=== PATIENT | male | born 1970 | race American Indian/Alaskan Native ===

== ENCOUNTER 2021-01-05 22:05 | Emergency (ER) | payer SELFPAY ==
--- NOTE | 2021-01-06 00:03 | Cat Scan Report ---
CT head without contrast INDICATION : Headache following injury TECHNIQUE: Axial imaging performed from the skull apex through the skull base without the use of con trast. All CT examinations performed at this facility utilize dose modulation, iterative reconstruct ion or weight-based dosing, when appropriate, to reduce radiation dose to as low as reasonably achiev able. COMPARISON: None FINDINGS: No acute intracranial hemorrhage or parenchymal abnormality. Ventricles are normal in si ze and appear symmetric. Soft tissues including the orbits appear normal. No acute osseous abnorm ality. Sinuses and mastoid air cells are clear. IMPRESSION: No acute abnormality. Signer Name: Keyur Falcon MD Signed: 01/05/2021 11:59 PM Workstation Name: [id number]
[2021-01-06] MEDS ORDERED: cloNIDine 0.1 MG TAB PO ONE ×3 (01:39→05:04)
--- NOTE | 2021-01-06 01:41 | Emergency Department Report ---
ED General Adult HPI - General Chief complaint: Head Injury Stated complaint: HEADACHE Time Seen by Provider: 01/06/21 01:33 Source: patient Mode of arrival: Ambulatory Limitations: No Limitations - History of Present Illness Initial comments: Patient is 50 years old male with history of hypertension on lisinopril 40 mg. Patient presented to the ER complaining of headache and pressure in his head for the last 4 to 5 days. Patient stated that he hit his head few days ago. Patient denied any loss of consciousness. No focal weakness numbness or tin gling sensation. No bowel or bladder incontinence. Patient also denied any chest pain or shortness of breath. - Related Data Previous Rx's Medication Instructions Recorded Last Taken Type Aspirin [Aspirin BABY CHEW TAB] 81 mg PO QDAY #30 tab.chew 04/03/14 Unknown Rx Metoprolol [Lopressor TAB] 50 mg PO BID #60 tablet 04/03/14 Unknown Rx Rosuvastatin (Nf) [Crestor] 40 mg PO QHS #30 tablet 04/03/14 Unknown Rx amLODIPine [Norvasc] 5 mg PO DAILY #30 tab 01/06/21 Unknown Rx Allergies Allergy/AdvReac Type Severity Reaction Status Date / Time No Known Allergies Allergy Verified 04/02/14 01:10 ED Review of Systems ROS: Stated complaint: HEADACHE Other details as noted in HPI Comment: All other systems reviewed and negative Constitutional: denies: chills, fever Respiratory: denies: cough, shortness of breath, SOB with exertion Cardiovascular: denies: chest pain, palpitations Gastrointestinal: denies: abdominal pain, nausea, vomiting Musculoskeletal: denies: back pain Neurological: headache. denies: weakness, numbness, paresthesias, confusion, abnormal gait ED Past Medical Hx - Past Medical History Hx Heart Attack/AMI: Yes - Surgical History Past Surgical History?: No - Social History Smoking Status: Current Every Day Smoker - Medications Home Medications: Home Medications Medication Instructions Recorded Confirmed Last Taken Type Aspirin [Aspirin BABY CHEW TAB] 81 mg PO QDAY #30 tab.chew 04/03/14 Unknown Rx Metoprolol [Lopressor TAB] 50 mg PO BID #60 tablet 04/03/14 Unknown Rx Rosuvastatin (Nf) [Crestor] 40 mg PO QHS #30 tablet 04/03/14 Unknown Rx amLODIPine [Norvasc] 5 mg PO DAILY #30 tab 01/06/21 Unknown Rx ED Physical Exam - General Limitations: No Limitations General appearance: alert, in no apparent distress - Head Head exam: Present: atraumatic, normocephalic, normal inspection - Eye Eye exam: Present: normal appearance - ENT ENT exam: Present: normal exam, normal orophraynx, mucous membranes moist - Neck Neck exam: Present: normal inspection, full ROM. Absent: tenderness, meningismus - Respiratory Respiratory exam: Present: normal lung sounds bilaterally - Cardiovascular Cardiovascular Exam: Present: regular rate, normal rhythm, normal heart sounds - GI/Abdominal GI/Abdominal exam: Present: soft, normal bowel sounds. Absent: distended, tenderness, guarding, rebound, rigid, organomegaly, mass, bruit, pulsatile mass, hernia - Extremities Exam Extremities exam: Present: normal inspection, full ROM, normal capillary refill. Absent: tenderness - Back Exam Back exam: Present: normal inspection, full ROM. Absent: CVA tenderness (R), CVA tenderness (L), muscle spasm, paraspinal tenderness, vertebral tenderness - Neurological Exam Neurological exam: Present: alert, oriented X3, CN II-XII intact - Psychiatric Psychiatric exam: Present: normal mood - Skin Skin exam: Present: warm, intact, normal color ED Course Vital Signs 01/05/21 01/06/21 01/06/21 22:27 02:13 05:10 Temperature 98.5 F Pulse Rate 98 H 89 Respiratory 20 18 20 Rate Blood Pressure 173/129 Blood Pressure 153/110 154/118 [Left] O2 Sat by Pulse 97 99 98 Oximetry ED Medical Decision Making - Lab Data Result diagrams: 01/06/21 01:52 01/06/21 01:52 - Radiology Data Radiology results: report reviewed - Medical Decision Making Patient is 50 years old male with history of hypertension on lisinopril 40 mg. Patient presented to the ER complaining of headache and pressure in his head for the last 4 to 5 days. Patient stated that he hit his head few days ago. Patient denied any loss of consciousness. No focal weakness numbness or tingling sensation. No bowel or bladder incontinence. Patient also denied any chest pain or shortness of breath. Patient received clonidine 0.2 mg for his blood pressure with significant improvement. CT brain is negative for acute finding. Labs reviewed and is unremarkable. Patient given prescription of Norvasc and advised to continue his lisinopril and follow-up with his primary care physician in the next 2 to 3 days and to return to the ER if he develop any new symptoms. Critical care attestation.: If time is entered above; I have spent that time in minutes in the direct care of this critically ill patient, excluding procedure time. ED Disposition Clinical Impression: Head injury, Malignant hypertension Disposition: DC-01 TO HOME OR SELFCARE Is pt being admited?: No Condition: Stable Instructions: Hypertension (ED), Hypertension, Adult, Head Injury, Adult Prescriptions: amLODIPine [Norvasc] 5 mg PO DAILY #30 tab Referrals: PRIMARY CARE, [Primary Care Provider] - 3-5 Days
[2021-01-06 02:06] LABS: Basophils % (Auto) 0.8 % (0.0-1.8); Eosinophils % (Auto) 0.2 % (0.0-4.3); Hematocrit 49.3 % (35.5-45.6); Hemoglobin 16.8 gm/dl (11.8-15.2); Lymphocytes # (Auto) 0.9 K/mm3 (1.2-5.4); Lymphocytes % (Auto) 22.5 % (13.4-35.0); Mean Corpuscular HGB Conc 34 % (32-34); Mean Corpuscular Volume 87 fl (84-94); Monocytes # (Auto) 0.4 K/mm3 (0.0-0.8); Monocytes % (Auto) 9.1 % (0.0-7.3); Platelet Count 170 K/mm3 (140-440); Red Blood Count 5.64 M/mm3 (3.65-5.03); Red Cell Distribution Width 15.4 % (13.2-15.2)
[2021-01-06 02:30] LABS: BUN/Creatinine Ratio 6; Blood Urea Nitrogen 8 mg/dL (9-20); Calcium 8.8 mg/dL (8.4-10.2); Hemolysis Index 13
[2021-01-06] MEDS ORDERED: cloNIDine 0.1 MG TAB ONE (04:54)
[2021-01-06] MEDS ORDERED: ACETAMINOPHEN 500 MG TAB ONE (04:54)
[2021-01-06] MEDS ORDERED: ACETAMINOPHEN 325 MG TAB ONE (05:01)
[2021-01-06] MEDS ORDERED: ACETAMINOPHEN 500 MG TAB PO ONE (05:04)
[2021-01-06 07:25] VITALS: BP 152/107
== END 2021-01-06 07:23 | disposition home or self-care (01) ==
LOC: ED 22:05
DX: S09.90XA Unspecified injury of head, initial encounter (principal); I10 Essential (primary) hypertension; F17.200 Nicotine dependence, unspecified, uncomplicated; Z79.82 Long term (current) use of aspirin; Z79.899 Other long term (current) drug therapy; Z98.890 Other specified postprocedural states; W22.8XXA Striking against or struck by other objects, initial encounter; Y93.89 Activity, other specified; Y92.89 Other specified places as the place of occurrence of the external cause; Y99.8 Other external cause status
CPT/HCPCS: 36415; 70450; 80048; 85025; 99284